=== PATIENT | female | born 1990 | race Caucasian/White ===

== ENCOUNTER 2017-08-12 09:30 | Emergency (ER) | payer SELFPAY ==
[2017-08-12] MEDS ORDERED: NS 1,000 ML IV ONE (10:15)
--- NOTE | 2017-08-12 10:15 | EDPHY ---
General Time Seen by Provider: 08/12/17 09:55 Narrative: CHIEF COMPLAINT: nausea, vomiting, HISTORY OF PRESENT ILLNESS: Patient presents with complaints of nausea, vomiting, headache. Symptoms started approximately Wednesday night. Primarily the nausea and vomiting that is concerning her. The headache is mild but does, go. She is concerned because she is . Her last menstrual period was June 01, making her approximately 10 weeks . This was diagnosed while still living in [facility]. She recently moved back from their arriving in the [facility] 3 days ago. She has no chest pain but occasional shortness of breath that she attributes to altitude. No abdominal pain but does have some discomfort with cramping retching. She states intolerance to liquids or solids. No fever chills. No vaginal bleeding or discharge. No pelvic pain. No other associated complaints or modifying factors. She is a . REVIEW OF SYSTEMS: Ten systems reviewed and are negative unless otherwise noted in the HPI PCP: None SPECIALISTS: None PAST MEDICAL HISTORY: Uncomplicated. PAST SURGICAL HISTORY: No recent surgeries. No abdominal surgeries ever SOCIAL HISTORY: Never smoker. Moved here 3 days ago from [facility]. Originally from [facility] FAMILY HISTORY: Noncontributory EXAMINATION General Appearance: Alert, no distress Head: normocephalic, atraumatic Eyes: Pupils equal and round, no conjunctival pallor or injection ENT, Mouth: Mucous membranes moist Neck: Normal inspection, supple, non-tender Respiratory: Lungs are clear to auscultation Cardiovascular: Regular rate and rhythm. No murmur. Gastrointestinal: Abdomen is soft and nondistended. Bowel sounds are appreciated in all 4 quadrants. No tympany. No rigidity. No guarding. No CVA tenderness. Back: non-tender, no bony abnormalities Neurological: A&O, nonfocal, normal gait Skin: Warm and dry, no rash no petechiae or purpura Extremities: Nontender, no pedal edema Psychiatric: Mood and affect normal DIFFERENTIAL DIAGNOSES: Including but not limited to hyperemesis gravidarum, gastritis, enteritis, gastroenteritis, altitude sickness, hape MDM: 10:15 a.m. Nausea, vomiting with mild headache at approximately 10 weeks gestation. [place]. Vital signs reveal mild tachycardia. I have ordered laboratory studies, IV fluids, decadron and promethazine. She has no chest pain and is in no acute distress. 11:00 a.m. Patient re-evaluated. She is resting comfortably in no acute distress. Laboratory studies are pending. 11:55 a.m. Patient re-evaluated. Laboratory studies are negative but her HCG is pending. She still feeling nauseated, thus I have ordered 12:30 p.m. Patient re-evaluated. She is improving and laboratory studies are unremarkable. No chest pain. No shortness of breath. Continue hydration and further medication in an attempt p.o. Trial. 1:30 p.m. Patient re-evaluated. She is somnolent but wakes easily. Expected side effects from medications were administered. She is feeling much better and would like to try some liquids. 1:45 p.m. Patient re-evaluated. She is tolerating liquids but not crackers. We discussed discharge home with liquids only, advancing slowly as tolerated. We discussed follow up with the OB physician on-call that she will need to contact. We discussed ED precautions for return of symptoms, any abdominal or pelvic pain, vaginal bleeding discharge. We discussed return here tomorrow morning if she is not completely resolved. She is comfortable this plan and discharged home stable condition. SUPERVISION: Patient was independently examined, but I discussed the case with my secondary supervising physician Dr. Chen - Diagnostics Imaging Results: Imaging Impressions Chest X-Ray 08/12/17 10:16 Impression: Normal. - History Smoking Status: Never smoked - Objective Vital Signs: Initial Vital Signs Temperature (C) 98.2 F 08/12/17 09:34 Heart Rate 104 H 08/12/17 09:34 Respiratory Rate 18 08/12/17 09:34 Blood Pressure 104/77 08/12/17 09:34 O2 Sat (%) 97 08/12/17 09:34 O2 Delivery Mode Room Air Allergies/Adverse Reactions: Sulfa (Sulfonamide Antibiotics) Allergy (Verified 08/12/17 09:34) Home Medications: Medication Instructions Recorded Nausea Med From [place] 08/12/17 Ondansetron Odt [Zofran Odt 4 mg 4 mg PO Q6 PRN #12 tab 08/12/17 (*)] Promethazine HCl [Phenergan 25mg 25 mg PO Q8 PRN #20 tab 08/12/17 (*)] Laboratory Results: Laboratory Results 08/12/17 10:49 08/12/17 10:49 18 08/12/17 10:49 10:49 WBC 7.62 10^3/uL 10^3/uL (3.80-9.50) RBC 4.07 10^6/uL L 10^6/uL (4.18-5.33) Hgb 13.1 g/dL g/dL (12.6-16.3) Hct 36.1 % L % (38.0-47.0) MCV 88.7 fL fL (81.5-99.8) MCH 32.2 pg pg (27.9-34.1) MCHC 36.3 g/dL g/dL (32.4-36.7) RDW 12.5 % % (11.5-15.2) Plt Count 193 10^3/uL 10^3/uL (150-400) MPV 9.8 fL fL (8.7-11.7) Neut % (Auto) 79.3 % H % (39.3-74.2) Lymph % (Auto) 13.1 % L % (15.0-45.0) [place] % (Auto) 6.8 % % (4.5-13.0) Eos % (Auto) 0.1 % L % (0.6-7.6) Baso % (Auto) 0.4 % % (0.3-1.7) Nucleat RBC Rel Count 0.0 % % (0.0-0.2) Absolute Neuts (auto) 6.04 10^3/uL 10^3/uL (1.70-6.50) Absolute Lymphs (auto) 1.00 10^3/uL 10^3/uL (1.00-3.00) Absolute Monos (auto) 0.52 10^3/uL 10^3/uL (0.30-0.80) Absolute Eos (auto) 0.01 10^3/uL L 10^3/uL (0.03-0.40) Absolute Basos (auto) 0.03 10^3/uL 10^3/uL (0.02-0.10) Absolute Nucleated RBC 0.00 10^3/uL 10^3/uL (0-0.01) Immature Gran % 0.3 % % (0.0-1.1) Immature Gran # 0.02 10^3/uL 10^3/uL (0.00-0.10) Sodium 134 mEq/L L mEq/L (135-145) Potassium 4.0 mEq/L mEq/L (3.3-5.0) Chloride 102 mEq/L mEq/L (97-110) Carbon Dioxide 21 mEq/l L mEq/l (22-31) Anion Gap 11 mEq/L mEq/L (8-16) BUN 10 mg/dL mg/dL (7-23) Creatinine 0.5 mg/dL L mg/dL (0.6-1.0) Estimated GFR > 60 Glucose 85 mg/dL mg/dL (70-100) Calcium 8.8 mg/dL mg/dL (8.5-10.4) Total Bilirubin 0.6 mg/dL mg/dL (0.1-1.4) Conjugated Bilirubin 0.4 mg/dL mg/dL (0.0-0.5) Unconjugated Bilirubin 0.2 mg/dL mg/dL (0.0-1.1) AST 18 IU/L IU/L (14-46) ALT 30 IU/L IU/L (9-52) Alkaline Phosphatase 47 IU/L IU/L (38-126) Total Protein 7.1 g/dL g/dL (6.3-8.2) Albumin 4.0 g/dL g/dL (3.5-5.0) Lipase 137 IU/L IU/L (23-300) Beta HCG, Quant 11659.00 mIU/mL H mIU/mL (0.00-4.83) Medications Given: Discontinued Medications Dexamethasone (Decadron Injection) 10 mg IVP EDNOW ONE Stop: 08/12/17 10:18 Last Admin: 08/12/17 10:46 Dose: 10 mg Diphenhydramine HCl (Benadryl Injection) 25 mg IVP EDNOW ONE Stop: 08/12/17 11:56 Last Admin: 08/12/17 12:15 Dose: 25 mg Sodium Chloride (Ns) 1,000 mls @ 0 mls/hr IV EDNOW ONE; Wide Open PRN Reason: Protocol Stop: 08/12/17 10:16 Last Admin: 08/12/17 10:45 Dose: 1,000 mls Metoclopramide HCl (Reglan Injection) 10 mg IVP EDNOW ONE Stop: 08/12/17 11:56 Last Admin: 08/12/17 12:15 Dose: 10 mg Promethazine HCl (Phenergan) 12.5 mg IVP ONCE ONE Stop: 08/12/17 10:18 Last Admin: 08/12/17 10:45 Dose: 12.5 mg Departure - Departure Disposition: Home, Routine, Self-Care Clinical Impression: Hyperemesis gravidarum Condition: Good Instructions: Hyperemesis Gravidarum (ED) Additional Instructions: 1. Promethazine nausea medication as prescribed as needed 2. Zofran nausea medication as prescribed as needed. We have discussed the risks, benefits of this in you will need to determine her comfort level 3. Increase fluid intake throughout the day. Advance her diet slowly as tolerated 4. Return to the emergency department tomorrow morning if you do not have complete resolution of your symptoms 5. Return to the emergency department sooner if you have any return of symptoms , intolerance of liquids, abdominal pain, pelvic pain, vaginal bleeding or discharge 6. Contact the on-call OB physician as provided for outpatient care Referrals: Keo Woods MD [Medical Doctor] - As per Instructions Sho Song MD [[facility] Primary Care Provider] - As per Instructions Stand Alone Forms: Work Excuse Prescriptions: Ondansetron Odt [Zofran Odt 4 mg (*)] 4 mg PO Q6 PRN #12 tab PRN Reason: Nausea/Vomiting, Use 1st Promethazine HCl [Phenergan 25mg (*)] 25 mg PO Q8 PRN #20 tab PRN Reason: Nausea/Vomiting, Use 1st
[2017-08-12] MEDS ORDERED: PROMETHAZINE HCL 25 MG/ML INJ IVP ONE (10:17)
[2017-08-12] MEDS ORDERED: DEXAMETHASONE 10 MG/ML VIAL IVP ONE (10:17)
[2017-08-12 11:04] LABS: PLATELET COUNT 193 10^3/uL (150-400)
[2017-08-12] MEDS ORDERED: METOCLOPRAMIDE 10 MG/2 ML VIAL IVP ONE (11:55)
[2017-08-12 14:20] VITALS: BP 118/62
== END 2017-08-12 14:19 | disposition home or self-care (01) ==
DX: O21.0 Mild hyperemesis gravidarum (principal); E86.9 Volume depletion, unspecified; Z3A.10 10 weeks gestation of pregnancy
CPT/HCPCS: 96374; J1200; J2550; J2765

== ENCOUNTER 2017-09-05 13:54 | Emergency (ER) | payer SELFPAY ==
[2017-09-05] MEDS ORDERED: PROMETHAZINE HCL 25 MG/ML INJ IVP ONE (14:32)
--- NOTE | 2017-09-05 14:33 | EDPHY ---
H & P Time Seen by Provider: 09/05/17 14:21 HPI/ROS: CHIEF COMPLAINT: Nausea and vomiting HISTORY OF PRESENT ILLNESS: 1 para 0 had nausea vomiting since weeks 6. Was here on August 12 and IV fluids and did have a follow-up visit at [facility]. Says that Zofran did not work very well and she got a prescription for promethazine or Phenergan from [facility]. She is currently out. She had 6 episodes of nausea and vomiting today and feels dehydrated. A little bit lightheaded. Symptoms moderate to severe and worse with oral intake although she otherwise feels fine. No bleeding or pelvic cramping. REVIEW OF SYSTEMS: Eye: no change in vision ENT: A little bit of sore throat she thinks from vomiting Cardiac: no chest pain or syncope Pulmonary: no cough or SOB Abdomen: HPI Musculoskeletal: no back pain Skin: no rash Neuro: no headache Constitutional: no fever : no urinary symptoms or vaginal bleeding A comprehensive 10 point review of systems is otherwise negative aside from elements mentioned in the history of present illness. PAST MEDICAL HISTORY: 1 para 0 Social history: Just moved to [place] recently General Appearance: Alert and conversant, cooperative. Eyes: No scleral icterus. ENT, Mouth: Dry mucous membranes. Respiratory: Normal respiratory effort, breath sounds equal, lungs are clear to auscultation. Cardiovascular: Regular rate and rhythm. Noted to be tachycardic but no murmurs. Gastrointestinal: Abdomen is soft and non tender. Neurological: Alert, face symmetric, normal motor and sensory in extremities. Skin: Warm and dry, no rashes. Musculoskeletal: No peripheral edema. Psychiatric: Not agitated. Emergency Department course/MDM: D5 LR x2 L, Phenergan 12.5 mg IV. 1500: Labs reviewed include normal creatinine and glucose, sodium 134. Chuck discussed at 1523 OK with promethazine Rx on DC will arrange office followup tomorrow. 1535: Feels better, no vomiting in the ED, 2nd L to be hung now. Smoking Status: Never smoked Constitutional: Initial Vital Signs Temperature (C) 36.7 C 09/05/17 13:56 Heart Rate 114 H 09/05/17 13:56 Respiratory Rate 18 09/05/17 13:56 Blood Pressure 100/73 09/05/17 13:56 O2 Sat (%) 98 09/05/17 13:56 O2 Delivery Mode Room Air Allergies/Adverse Reactions: Sulfa (Sulfonamide Antibiotics) Allergy (Verified 09/05/17 13:58) Home Medications: Medication Instructions Recorded Nausea Med From [place] 08/12/17 Ondansetron Odt [Zofran Odt 4 mg 4 mg PO Q6 PRN #12 tab 08/12/17 (*)] Promethazine HCl [Phenergan 25mg 25 mg PO Q8 PRN #20 tab 08/12/17 (*)] Promethazine HCl [Phenergan 25mg 25 mg PO Q12 PRN #10 tab 09/05/17 (RX)] Medical Decision Making Differential Diagnosis: Differential considered including but not limited to hyperemesis, medication side-effect, gastroenteritis, food poisoning. - Data Points Laboratory Results: Laboratory Results 09/05/17 14:20 09/05/17 14:20 09/05/17 09/05/17 14:20 14:20 WBC 12.03 10^3/uL H 10^3/uL (3.80-9.50) RBC 4.10 10^6/uL L 10^6/uL (4.18-5.33) Hgb 13.2 g/dL g/dL (12.6-16.3) Hct 37.2 % L % (38.0-47.0) MCV 90.7 fL fL (81.5-99.8) MCH 32.2 pg pg (27.9-34.1) MCHC 35.5 g/dL g/dL (32.4-36.7) RDW 13.2 % % (11.5-15.2) Plt Count 233 10^3/uL 10^3/uL (150-400) MPV 9.5 fL fL (8.7-11.7) Neut % (Auto) 81.5 % H % (39.3-74.2) Lymph % (Auto) 13.3 % L % (15.0-45.0) [place] % (Auto) 4.2 % L % (4.5-13.0) Eos % (Auto) 0.2 % L % (0.6-7.6) Baso % (Auto) 0.2 % L % (0.3-1.7) Nucleat RBC Rel Count 0.0 % % (0.0-0.2) Absolute Neuts (auto) 9.79 10^3/uL H 10^3/uL (1.70-6.50) Absolute Lymphs (auto) 1.60 10^3/uL 10^3/uL (1.00-3.00) Absolute Monos (auto) 0.51 10^3/uL 10^3/uL (0.30-0.80) Absolute Eos (auto) 0.03 10^3/uL 10^3/uL (0.03-0.40) Absolute Basos (auto) 0.03 10^3/uL 10^3/uL (0.02-0.10) Absolute Nucleated RBC 0.00 10^3/uL 10^3/uL (0-0.01) Immature Gran % 0.6 % % (0.0-1.1) Immature Gran # 0.07 10^3/uL 10^3/uL (0.00-0.10) Sodium 134 mEq/L L mEq/L (135-145) Potassium 3.8 mEq/L mEq/L (3.3-5.0) Chloride 103 mEq/L mEq/L (97-110) Carbon Dioxide 23 mEq/l mEq/l (22-31) Anion Gap 8 mEq/L mEq/L (8-16) BUN 6 mg/dL L mg/dL (7-23) Creatinine 0.4 mg/dL L mg/dL (0.6-1.0) Estimated GFR > 60 Glucose 89 mg/dL mg/dL (70-100) Calcium 9.3 mg/dL mg/dL (8.5-10.4) Medications Given: Discontinued Medications Dextrose/Lactated Ringer's (D5w Lr) 1,000 mls @ 0 mls/hr IV CONT [place] PRN Reason: Wide Open Stop: 03/04/18 14:44 Last Admin: 09/05/17 14:43 Dose: 1,000 mls Dextrose/Lactated Ringer's (D5w Lr) 1,000 mls @ 0 mls/hr IV CONT [place] PRN Reason: Wide Open Stop: 03/04/18 14:44 Last Admin: 09/05/17 15:40 Dose: 1,000 mls Sodium Chloride (Ns) 1,000 mls @ 0 mls/hr IV EDNOW ONE; Wide Open PRN Reason: Protocol Stop: 09/05/17 16:05 Last Admin: 09/05/17 16:16 Dose: 1,000 mls Promethazine HCl (Phenergan) 12.5 mg IVP EDNOW ONE Stop: 09/05/17 14:33 Last Admin: 09/05/17 14:41 Dose: 12.5 mg Promethazine HCl (Phenergan 25 Mg Prepack #4) 1 btl TAKEHOME EDNOW ONE Stop: 09/05/17 18:01 Last Admin: 09/05/17 18:04 Dose: 1 btl Departure - Departure Disposition: Home, Routine, Self-Care Clinical Impression: Hyperemesis, Dehydration Condition: Good Instructions: Promethazine (By mouth), Hyperemesis Gravidarum (ED) Referrals: Keo Woods MD [Medical Doctor] - As per Instructions Calli Encinas DO [Doctor of Osteopathy] - As per Instructions Prescriptions: Promethazine HCl [Phenergan 25mg (RX)] 25 mg PO Q12 PRN #10 tab PRN Reason: Nausea/Vomiting, Use 1st
[2017-09-05] MEDS ORDERED: D5W LR 1,000 ML IV SCH ×2 (14:45)
[2017-09-05 14:51] LABS: PLATELET COUNT 233 10^3/uL (150-400)
[2017-09-05] MEDS ORDERED: NS 1,000 ML IV ONE (16:04)
[2017-09-05] MEDS ORDERED: PROMETHAZINE 25 MG PREPACK #4 BTL TAKEHOME ONE (18:00)
[2017-09-05 18:11] VITALS: BP 112/64
== END 2017-09-05 18:11 | disposition home or self-care (01) ==
DX: O21.1 Hyperemesis gravidarum with metabolic disturbance (principal); E86.9 Volume depletion, unspecified; Z3A.14 14 weeks gestation of pregnancy
CPT/HCPCS: 96374; J2550